=== PATIENT | female | born 1995 | race African-American/Black ===

== ENCOUNTER 2022-03-03 11:11 | Outpatient (CLI) | payer BC, OTHER | END 2022-03-03 11:12 | disposition home or self-care (01) | LOC: CSHLAB 11:11 | PROVIDERS: ATTEND Family Medicine | DX: Z20.822 Contact with and (suspected) exposure to COVID-19 (principal) | CPT/HCPCS: U0003; U0005 ==

== ENCOUNTER 2022-03-09 11:42 | Day surgery (SDC) | payer BC, OTHER ==
[2022-03-09 12:04] VITALS: BMI 28.9
== END 2022-03-09 15:00 | disposition home or self-care (01) ==
LOC: CSHLD/OP 11:42
PROVIDERS: ATTEND Family Medicine
DX: O36.5930 Maternal care for other known or suspected poor fetal growth, third trimester, not applicable or unspecified (principal); Z3A.00 Weeks of gestation of pregnancy not specified
CPT/HCPCS: 76819

== ENCOUNTER 2023-01-17 18:57 | Emergency (ER) | payer BC, OTHER ==
[2023-01-17] MEDS ORDERED: Ketorolac Tromethamine 30 MG/ML VIAL ONE (21:17)
== END 2023-01-17 21:36 | disposition home or self-care (01) ==
LOC: CSHERS 18:57
DX: K04.7 Periapical abscess without sinus (principal)
CPT/HCPCS: 96372; 99282; J1885

== ENCOUNTER 2024-09-15 00:07 | Emergency (ER) | payer BC, OTHER ==
[2024-09-15 00:52] LABS: Bilirubin Neg (Negative); Blood, Urine Negative (Negative); Glucose, Urine (Dipstick) Normal (Negative); Ketone, Urine Negative (Negative); Leukocyte 100 (Negative); Nitrite Negative (Negative); Protein, Urine (Dipstick) Negative (Neg-Trace); Urobilinogen Normal mg/dL (Less than 2)
[2024-09-15 00:55] LABS: Clarity Clear (Clear)
[2024-09-15 00:56] LABS: Pregnancy Test - Urine (BHCG) Negative (Negative); Pregu Control Background? CLEAR/WHITE (CLR/WHITE); Pregu Control Bar Appear? YES (CONTROL BAR)
[2024-09-15 01:06] LABS: Bacteria/HPF 2+ HPF (None Seen); CAUTI Indications for Culture Pelvic or flank pain; RBC/HPF 0-3 HPF (0-3)
[2024-09-15 01:07] LABS: Urine Culture Reflex No No
[2024-09-15] MEDS ORDERED: Sterile Water 10 ML ONE (01:09)
[2024-09-15] MEDS ORDERED: cefTRIAXone (ROCEPHIN) 500 MG VIAL ONE (01:09)
[2024-09-16 05:06] LABS: Chlamydia by PCR, Vaginal Swab Not Detected (NotDetected); GC by PCR, Vaginal Swab Not Detected (NotDetected); Tric.vaginalis PCR,Vaginal Sw Not Detected (NotDetected)
== END 2024-09-15 01:38 | disposition home or self-care (01) ==
LOC: CSHERS 00:07
DX: N39.0 Urinary tract infection, site not specified (principal)
CPT/HCPCS: 81001; 81025; 87491; 87591; 87661; 96372; 99283; J0696

== ENCOUNTER 2025-09-12 11:33 | Emergency (ER) | payer BC, OTHER | END 2025-09-12 13:30 | disposition home or self-care (01) | LOC: CSHERS 11:33 | DX: S16.1XXA Strain of muscle, fascia and tendon at neck level, initial encounter (principal); V49.9XXA Car occupant (driver) (passenger) injured in unspecified traffic accident, initial encounter; Y92.410 Unspecified street and highway as the place of occurrence of the external cause | CPT/HCPCS: 99283 ==